=== PATIENT | female | born 1985 | race Caucasian/White ===

== ENCOUNTER 2019-06-07 05:50 | Emergency (ER) | payer BC ==
[~2019-06-07] VITALS: Ht 167.6 cm; Wt 67.6 kg
[2019-06-07] MEDS ORDERED: PROPANOLOL ER PO (06:03)
[2019-06-07] MEDS ORDERED: OMEPRAZOLE20 M1 PO (06:04)
[2019-06-07] MEDS ORDERED: XANAX 1 MG TABLE1 MG PO (06:33)
[2019-06-07 06:37] VITALS: BP 135/88
== END 2019-06-07 06:37 | disposition home or self-care (01) ==
LOC: M.ERS 05:50
DX: F41.9 Anxiety disorder, unspecified (principal); Z88.2 Allergy status to sulfonamides

== ENCOUNTER 2019-07-01 18:03 | Emergency (ER) | payer BC ==
[~2019-07-01] VITALS: Ht 167.6 cm; Wt 67.6 kg
[~2019-07-01 18:03] MED LIST: OMEPRAZOLE20 M1 PO; PROPANOLOL ER PO; XANAX 1 MG TABLE1 MG PO
[2019-07-01] MEDS ORDERED: ALLEGRA ALLERGY60 MG PO (18:13)
[2019-07-01] MEDS ORDERED: TORADOL 10 MG T10 MG PO (20:42)
[2019-07-01] MEDS ORDERED: ACETAMINOPHEN-1 EAC1 PO (20:42)
[2019-07-01] MEDS ORDERED: MEDROLDOSEPACK PO (20:42)
[2019-07-01 20:52] VITALS: BP 112/67
== END 2019-07-01 20:53 | disposition home or self-care (01) ==
LOC: M.ERS 18:03
DX: M54.5 Low back pain (principal); F41.9 Anxiety disorder, unspecified; Z88.2 Allergy status to sulfonamides